=== PATIENT | female | born 1970 | race Caucasian/White ===

== ENCOUNTER 2018-03-16 14:12 | Outpatient (CLI) | payer OTHER ==
--- NOTE | 2018-03-21 17:47 | Mammography Report ---
DIGITAL SCREENING MAMMOGRAM: 03/16/2018 CLINICAL INDICATION: A 47-year-old nulliparous patient for screening. COMPARISON: 12/2015, 07/2012, 07/2008. TECHNIQUE: Routine CC and MLO projections were obtained of the breasts. FINDINGS: Parenchymal tissue within the breasts is predominantly fatty replaced. There are no dominant masses, suspicious microcalcifications, or secondary signs of malignancy. In comparison to the previous studies, there are no significant changes. IMPRESSION: NO MAMMOGRAPHIC EVIDENCE OF MALIGNANCY. NO SIGNIFICANT INTERVAL CHANGES. RECOMMENDATION: Screening mammography is recommended annually. BIRADS category 1 - negative. STANDARD QUALIFYING STATEMENTS: 1. This examination was reviewed with the aid of Computed-Aided Detection (CAD). 2. A negative or benign imaging report should not delay biopsy if clinically suspicious findings are present. Consider surgical consultation if warranted. More than 5% of cancers are not identified by imaging. 3. Dense breasts may obscure an underlying neoplasm. TD: 03/21/2018 15:33
== END 2018-03-16 14:13 | disposition home or self-care (01) ==
LOC: DI.N 14:12
PROVIDERS: ATTEND Nutritionist
DX: Z12.31 Encounter for screening mammogram for malignant neoplasm of breast (principal)
CPT/HCPCS: 77067

== ENCOUNTER 2021-09-21 11:15 | Emergency (ER) | payer OTHER ==
[2021-09-21 13:09] VITALS: BP 146/78
--- NOTE | 2021-09-21 13:17 | ED Physician Documentation ---
PD HPI UPPER EXT INJURY - Stated complaint Stated Complaint: LEFT SHOULDER PX - Chief complaint Chief Complaint: Ext Problem - History obtained from History obtained from: Patient - Additonal information Additional information: 50-year-old woman with history of very remote [place] repair of left shoulder has had increased left shoulder pain over the last days or so culminating in basically the inability to move it at all now. She notes that she cannot really abduct at all but can do it passively if she uses her right arm to move it. Pain is diffuse about the left shoulder and severe at times. Movement really hurts. No fevers. Review of Systems Constitutional: reports: Reviewed and negative Eyes: reports: Reviewed and negative Ears: reports: Reviewed and negative Nose: reports: Reviewed and negative PD PAST MEDICAL HISTORY - Past Medical History Respiratory: Asthma - Past Surgical History HEENT: Tonsil/Adenoidectomy - Present Medications Home Medications: Ambulatory Orders Medication Instructions Recorded Confirmed Cetirizine HCl [Zyrtec] 10 mg PO DAILY 03/05/13 03/05/13 Montelukast Sodium [Singulair] 10 mg PO DAILY 03/05/13 03/05/13 PARoxetine HCl [Paxil] 20 mg PO DAILY 03/05/13 03/05/13 Prazosin HCl 5 mg PO DAILY 03/05/13 03/05/13 Propranolol [Inderal] 03/05/13 03/05/13 Rizatriptan Benzoate [Maxalt] 5 mg PO ONCE PRN 03/05/13 03/05/13 HYDROcod/ACETAM 5/325 [[place] 5/325] 1 - 2 tab PO Q6H PRN #15 tablet 09/21/21 - Allergies Allergies/Adverse Reactions: Allergies Allergy/AdvReac Type Severity Reaction Status Date / Time acetaminophen [From Percocet] Allergy Hallucinati Verified 09/21/21 11:38 ons diphenhydramine HCl * Allergy anaphylaxis Verified 09/21/21 11:38 [From Benadryl] formaldehyde Allergy anaphylaxis Verified 09/21/21 11:38 oxycodone HCl * Allergy Hallucinati Verified 09/21/21 11:38 [From Percocet] ons Penicillins Allergy Hives Verified 09/21/21 11:38 Sulfa (Sulfonamide Allergy Hives Verified 09/21/21 11:38 Antibiotics) - Social History Does the pt smoke?: No Smoking Status: Never smoker Does the pt drink ETOH?: Yes Does the pt have substance abuse?: No - Immunizations Immunizations: TDAP current <10years PD ED PE NORMAL - Vitals Vital signs reviewed: Yes - General General: Alert and oriented X 3, No acute distress - Back Back: No CVA TTP, No spinal TTP - Derm Derm: Normal color, Warm and dry - Extremities Extremities: Other (Diffuse tenderness about the left shoulder without focal bony tenderness. No tenderness of the clavicle. She is really unable to abduct at all but can do it passively when she uses the other arm. Positive supraspinatus testing. Normal sensation and strength throughout the upper extremities.) - Neuro Neuro: Alert and oriented X 3, Normal speech Results - Vitals Vitals: Vital Signs - 24 hr 09/21/21 09/21/21 11:35 13:08 Temperature 36.2 C L 36.6 C Heart Rate 99 98 Respiratory 16 17 Rate Blood Pressure 142/81 H 146/78 H O2 Saturation 99 100 Oxygen O2 Source Room air PD MEDICAL DECISION MAKING - ED course ED course: 50-year-old woman with clinical rotator cuff pathology on the left. X-ray of the left shoulder, 3 views, interpreted contemporaneously by me shows no acute issue. I am prescribing a short course of short-acting opioid pain medication for this patient. 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 I have discussed that the opioids are for short term therapy only, and will not be refilled from the ED. Departure - Departure Disposition: 01 Home, Self Care Clinical Impression: Rotator cuff arthropathy Condition: Good Record reviewed to determine appropriate education?: Yes Instructions: ED Tendinitis Rotator Cuff Prescriptions: HYDROcod/ACETAM 5/325 [[place] 5/325] 1 - 2 tab PO Q6H PRN #15 tablet PRN Reason: Pain Comments: Prescription sent electronically to [facility] in [place]. As discussed I think you have a rotator cuff issue on the Left. [facility] and/or orthopedic consult. Do range of motion exercises as shown to prevent frozen shoulder. I am prescribing a short course of narcotic pain medication for you. These are potentially dangerous and addictive medications that should be used carefully. These medications may constipate you. Take an jzvd-tsu-tdcxnnh stool softener (docusate) twice daily with plenty of water while taking these medications. If you go 24 hours without a bowel movement, take jzaz-poq-bihrvua miralax, per package instructions. Do not drink or drive while taking these medications. If you received narcotic or sedating medications while in the emergency department, do not drive for 24 hours. Store this medication in a safe, secure place and out of reach of children. It is a violation of federal law to give or sell this medication to another person or to use in a manner other than prescribed. The ED will not refill narcotic prescriptions, including prescriptions lost or stolen. To dispose of unwanted medications: 1. [facility] at [address] in [place] has a medication drop box. They accept prescription medications (in pill form) Tuesday through Tuesday 9:00 a.m. to 5:00 p.m. 2. The [facility] [employer] accepts prescription medications (in pill form only) for disposal year round. Call for more information. 3. Contact the [facility] for the next [facility] sponsored prescription drug collection event. , [phone], or [phone]; Note that many narcotic pain relievers also contain Tylenol/acetaminophen. Please ensure that your total dose of acetaminophen from all sources does not exceed 3 g (3000 mg) per day.
--- NOTE | 2021-09-21 13:45 | XRAY Report ---
PROCEDURE: Shoulder 3 View LT INDICATIONS: left shoulder pain TECHNIQUE: 3 views of the shoulder were acquired. COMPARISON: None. FINDINGS: Bones: No acute fractures or dislocations. No suspicious bony lesions. Visualized ribs appear inta ct. Postsurgical changes are seen with metallic anchors in the glenoid. Soft tissues: No suspicious soft tissue calcifications. IMPRESSION: No acute osseous abnormality. If there is clinical concern or persistent symptoms, addit ional imaging such as repeat radiographs or advanced imaging (e.g. CT, MRI) may be helpful for furthe r evaluation. Reviewed by: Tab Mitchell MD on 09/21/2021 1:44 PM PST Approved by: Tab Mitchell MD on 09/21/2021 1:44 PM PST Station ID: [id number]
[2021-09-21] MEDS: KETOROLAC 60 MG/2 ML VIAL IM STA (14:00)
== END 2021-09-21 14:44 | disposition home or self-care (01) ==
LOC: ED 11:15
DX: M75.102 Unspecified rotator cuff tear or rupture of left shoulder, not specified as traumatic (principal); M12.9 Arthropathy, unspecified
CPT/HCPCS: 96372; 99283

== ENCOUNTER 2022-11-24 14:51 | Outpatient (CLI) | payer OTHER ==
--- NOTE | 2022-11-25 09:28 | Mammography Report ---
BILATERAL DIGITAL SCREENING MAMMOGRAM 3D/2D: 11/24/2022 CLINICAL: Routine screening. Comparison is made to exams dated: 03/16/2018 mammogram and 01/20/2016 mammogram - [facility]. There are scattered areas of fibroglandular density in both breasts (category b / 25%-50% glandular t issue). No significant masses, calcifications, or other findings are seen in either breast. There has been no significant interval change. IMPRESSION: NEGATIVE There is no mammographic evidence of malignancy. A 1 year screening mammogram is recommended. Based on the Tyrer Cuzick model (a risk assessment model) the patients lifetime risk is 9.0% and her 10 year risk is 2.1%. According to the ACR, ACS, and NCCN guidelines, an annual breast MRI exam imani g with mammogram is recommended if the patients lifetime risk is 20% or greater. This exam was interpreted at Station ID: [id number]. NOTE: For mammograms, a report in lay terms will be sent to the patient. Approximately 15% of breast malignancies will not be visualized mammographically. In the management of a palpable breast mass, a negative mammogram must not discourage biopsy of a clinically suspicious lesion. Electronically Signed By: Conner marion/penrad:11/24/2022 17:26:43 ACR BI-RADS Category 1: Negative 3341F PARENCHYMAL PATTERN: (A) - The breast(s) demonstrate(s) scattered fibroglandular densities. BI-RADS CATEGORY: (1) - 1 RECOMMENDATION: (ANNUAL) - Recommend routine annual screening mammography. [id number] 1 year screening LATERALITY: (B)
== END 2022-11-24 14:52 | disposition home or self-care (01) ==
LOC: DI.N 14:51
PROVIDERS: ATTEND Nurse Practitioner
DX: Z12.31 Encounter for screening mammogram for malignant neoplasm of breast (principal)

== ENCOUNTER 2023-04-17 16:25 | Outpatient (CLI) | payer OTHER | END 2023-04-17 23:59 | disposition left against medical advice (07) | LOC: EMS 16:25 | DX: R11.10 Vomiting, unspecified (principal); R00.0 Tachycardia, unspecified ==

== ENCOUNTER 2023-04-19 16:55 | Outpatient (CLI) | payer OTHER ==
[~2023-04-19 16:55] MED LIST: DIATRIZOATE MEGLU/DIATRIZO SOD 30 ML BOTTLE PO ONE; iohexoL-300 100 ML VIAL ONE
--- NOTE | 2023-04-19 18:19 | CT Report ---
PROCEDURE: HEAD WO INDICATIONS: MIGRAINE TECHNIQUE: Noncontrast 4.5 mm thick angled axial sections acquired from the foramen magnum to the vertex. For r adiation dose reduction, the following was used: automated exposure control, adjustment of mA and/or kV according to patient size. COMPARISON: None. FINDINGS: Image quality: Excellent. CSF spaces: Basal cisterns are patent. No extra-axial fluid collections. Ventricles are normal in size and shape. Brain: No midline shift. No intracranial masses or hemorrhage. Canela-white matter interface is norm al. Skull and face: Calvarium and visualized facial bones are intact, without suspicious lesions. Sinuses: Visualized sinuses and mastoids are clear. IMPRESSION: No acute intracranial abnormality. Reviewed by: Conner Burger MD on 04/19/2023 6:18 PM PDT Approved by: Conner Burger MD on 04/19/2023 6:18 PM PDT Station ID: [id number]
== END 2023-04-19 16:56 | disposition home or self-care (01) ==
LOC: DI 16:55
PROVIDERS: ATTEND Internal Medicine
DX: G43.109 Migraine with aura, not intractable, without status migrainosus (principal); Z78.0 Asymptomatic menopausal state
CPT/HCPCS: 36415; 83001

== ENCOUNTER 2024-02-18 18:56 | Emergency (ER) | payer OTHER ==
[2024-02-18 19:06] VITALS: O2SAT 98
--- NOTE | 2024-02-18 19:19 | ED Physician Documentation ---
PD HPI HEADACHE - Stated complaint Stated Complaint: MIGRAINE/VERTIGO - Chief complaint Chief Complaint: Neuro - History obtained from History obtained from: Patient - Additional information Additional information: Patient complains of migraine headache. Patient says she "suffers from migraines" (per patient). She says she gets monthly injections for this, is not due for the next injection until February 28. The migraine is bifrontal, started earlier today without inciting event. It is associate with nausea but no vomiting, fatigue, and vertigo. She took a, medication (aspirin, caffeine, butalbital) this morning without improvement. She also started to get a ringing noise/sound in her ears, which she says often has been the first symptom leading to syncopal episodes with her migraine headaches. She did not, however, experience any syncope today. Review of Systems Constitutional: denies: Fever Eyes: reports: Photophobia GI: reports: Nausea. denies: Abdominal Pain, Vomiting Neurologic: reports: Generalized weakness, Headache. denies: Focal weakness, Numbness, Near syncope, Syncope PD PAST MEDICAL HISTORY - Past Medical History Respiratory: Asthma - Past Surgical History HEENT: Tonsil/Adenoidectomy - Present Medications Home Medications: Ambulatory Orders Medication Instructions Recorded Confirmed Cetirizine HCl [Zyrtec] 10 mg PO DAILY 03/05/13 03/05/13 Montelukast Sodium [Singulair] 10 mg PO DAILY 03/05/13 03/05/13 PARoxetine HCL [Paxil] 20 mg PO DAILY 03/05/13 03/05/13 Prazosin HCl 5 mg PO DAILY 03/05/13 03/05/13 Propranolol [Inderal] 03/05/13 03/05/13 Rizatriptan Benzoate [Maxalt] 5 mg PO ONCE PRN 03/05/13 03/05/13 HYDROcod/ACETAM 5/325 [[place] 5/325] 1 - 2 tab PO Q6H PRN #15 tablet 09/21/21 - Allergies Allergies/Adverse Reactions: Allergies Allergy/AdvReac Type Severity Reaction Status Date / Time acetaminophen [From Percocet] Allergy Hallucinati Verified 02/18/24 19:07 ons diphenhydramine HCl * Allergy anaphylaxis Verified 02/18/24 19:07 [From Benadryl] formaldehyde Allergy anaphylaxis Verified 02/18/24 19:07 oxycodone HCl * Allergy Hallucinati Verified 02/18/24 19:07 [From Percocet] ons Penicillins Allergy Hives Verified 02/18/24 19:07 Sulfa (Sulfonamide Allergy Hives Verified 02/18/24 19:07 Antibiotics) ondansetron [From Zofran] AdvReac Emesis Verified 02/18/24 19:07 - Social History Does the pt smoke?: No Smoking Status: Never smoker Does the pt drink ETOH?: Yes Does the pt have substance abuse?: No - Immunizations Immunizations: TDAP current <10years PD ED PE NORMAL - Vitals Vital signs reviewed: Yes - General General: Alert and oriented X 3, No acute distress, Well developed/nourished - HEENT HEENT: PERRL, EOMI, Moist mucous membranes - Neck Neck: Supple, no meningeal sign - Cardiac Cardiac: RRR, No murmur - Respiratory Respiratory: No respiratory distress, Clear bilaterally - Abdomen Abdomen: Soft, Non tender - Neuro Neuro: Alert and oriented X 3, senior web developer 2-12 intact, No motor deficit, No sensory deficit, Normal speech Eye Opening: Spontaneous Motor: Obeys Commands Verbal: Oriented GCS Score: 15 Results - Vitals Vitals: Vital Signs - 24 hr 02/18/24 02/18/24 02/18/24 18:58 19:05 21:05 Temperature 36.9 C 36.9 C 36.5 C Heart Rate 93 93 88 Respiratory 22 22 18 Rate Blood Pressure 143/88 H 143/88 H 138/88 H O2 Saturation 98 98 98 Oxygen O2 Source Room air - Labs Labs: Laboratory Tests 02/18/24 02/18/24 20:00 20:00 WBC 7.7 RBC 5.38 Hgb 11.8 L Hct 39.8 MCV 74.0 L MCH 21.9 L MCHC 29.6 L RDW 16.7 H Plt Count 164 MPV 10.7 Neut # (Auto) 4.4 Lymph # (Auto) 2.3 Delta # (Auto) 0.8 Eos # (Auto) 0.2 Baso # (Auto) 0.0 Absolute Nucleated RBC 0.00 Nucleated RBC % 0.0 Sodium 138 Potassium 3.6 Chloride 104 Carbon Dioxide 27 Anion Gap 7.0 BUN 12 Creatinine 0.8 Estimated GFR (MDRD) 75 L Glucose 103 Calcium 9.6 PD Medical Decision Making - ED course Complexity details: reviewed results, re-evaluated patient, considered differential, d/w patient ED course: Patient presents with what she says is a number of symptoms along with headache that are consistent with previous migraine headaches that she has had, albeit this 1 is worse than her typical migraine headaches (she says it has been many years since she has had to go to emergency department for migraine headache). One of the challenges in treating is patient is that she lives a number of allergies and does not want any anti-nausea medications (she says anti-nausea medications make her "so much more nauseous"). She is given 1 L IV normal saline, 30 mg IV Toradol. Basic blood tests are ordered. Note that I had also ordered meclizine. I discussed this option for treatment of her vertigo with her, including the brand-name Antivert along with the generic name meclizine. She is not familiar with this medication. When I went to order the medication, the computer is flagging caution due to patient's chart listing diphenhydramine as an allergy. When I asked patient about the diphenhydramine allergy, she says it causes anaphylaxis. Although meclizine is a different medication, it still works through anti-histamine mechanism and thus I canceled the meclizine order. There are no concerning nor diagnostic findings on CBC, basic metabolic profile. On reevaluation, results discussed with patient. She reports feeling much improved after 1 L normal saline and the IV Toradol, and is comfortable with discharge at this time. Return precautions reviewed, encouraged to follow-up with PCP. Departure - Departure Disposition: 01 Home, Self Care Clinical Impression: Migraine Qualifiers: Migraine type: unspecified Status migrainosus presence: with status migrainosus Intractability: not intractable Qualified Code(s): G43.901 - Migraine, unspecified, not intractable, with status migrainosus Condition: Good Instructions: ED Headache Migraine Comments: There were no concerning findings on tonight's basic blood tests. Your white blood cell count, electrolytes, kidney function tests, and blood sugar were all within normal ranges. You were given 1 L of IV fluids as well as 30 mg of Toradol (anti-inflammatory) through the IV. Hopefully, with some rest at home, you will continue to have improvement in your symptoms. Discharge Date/Time: 02/18/24 21:31
[2024-02-18] MEDS: MECLIZINE 12.5 MG TABLET PO STA (19:52)
[2024-02-18] MEDS: KETOROLAC 30 MG/ML VIAL IVP STA (20:03)
[2024-02-18] MEDS: SODIUM CHLORIDE 0.9% 1,000 ML IV STA (20:04)
[2024-02-18 20:25] LABS: BASOPHILS % (AUTO) 0.3 %; EOSINOPHILS # (AUTO) 0.2 10^3/uL (0.0-0.7); HCT - HEMATOCRIT 39.8 % (37.0-47.0); HGB - HEMOGLOBIN 11.8 g/dL (12.0-16.0); LYMPHOCYTES # (AUTO) 2.3 10^3/uL (1.5-3.5); LYMPHOCYTES % (AUTO) 30.3 %; MEAN CORPUSCULAR HEMOGLOBIN 21.9 pg (27.0-31.0); MEAN CORPUSCULAR HGB CONC 29.6 g/dL (32.0-36.0); MEAN PLATELET VOLUME 10.7 fL (7.9-10.8); MONOCYTES # (AUTO) 0.8 10^3/uL (0.0-1.0); MONOCYTES % (AUTO) 9.7 %; NEUTROPHILS # (AUTO) 4.4 10^3/uL (1.5-6.6); NEUTROPHILS % (AUTO) 56.4 %; PLT - PLATELET COUNT 164 10^3/uL (130-450); RED BLOOD COUNT 5.38 10^6/uL (4.20-5.40); RED CELL DISTRIBUTION WIDTH 16.7 % (12.0-15.0); WHITE BLOOD COUNT 7.7 x10^3/uL (4.8-10.8)
[2024-02-18 20:41] LABS: CALCIUM 9.6 mg/dL (8.5-10.3); CREATININE 0.8 mg/dL (0.6-1.3); POTASSIUM 3.6 mmol/L (3.5-4.5)
[2024-02-18 21:15] VITALS: BP 138/88
== END 2024-02-18 21:31 | disposition home or self-care (01) ==
LOC: ED 18:56
DX: G43.901 Migraine, unspecified, not intractable, with status migrainosus (principal); R42 Dizziness and giddiness; Z88.8 Allergy status to other drugs, medicaments and biological substances
CPT/HCPCS: 36415; 80048; 85025; 96374; 99284

== ENCOUNTER 2024-04-17 16:16 | Emergency (ER) | payer OTHER ==
--- NOTE | 2024-04-17 17:06 | XRAY Report ---
PROCEDURE: Knee 4+V RT INDICATIONS: PAIN/TENDERNESS/SWELLING R KNEE TECHNIQUE: 4 views of the knee(s) were acquired. COMPARISON: None. FINDINGS: Bones: No fractures or dislocations. Moderate to severe medial femoral tibial compartment osteoarthr itic changes are seen with significant joint space narrowing, subchondral sclerosis and marginal oste ophyte formation. No patella subluxation. No suspicious bony lesions. Soft tissues: Nonspecific mild anterior medial right knee soft tissue swelling is seen. Small knee darius int effusion. No suspicious soft tissue calcifications or masses. IMPRESSION: No acute right knee fracture or dislocation. 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 Nonspecific anteromedial right knee soft tissue swelling and small joint effusion. Reviewed by: Dennis Santizo MD on 04/17/2024 5:05 PM PDT Approved by: Dennis Santizo MD on 04/17/2024 5:05 PM PDT Station ID: [id number]
--- NOTE | 2024-04-17 17:17 | ED Physician Documentation ---
History of Present Illness - Stated complaint Stated Complaint: R KNEE PX - Chief complaint Chief Complaint: Ext Problem - History obtained from History obtained from: Patient - History of Present Illness Timing: Other (several months) Pain level max: 6 Pain level now: 4 - Additonal information Additional information: 53-year-old female with right knee pain for several months. She states that it occasionally gives out on her. She states that it swells as well. She has had problems with the right knee in the past. Worse with walking, better with rest. She did bump it on a dresser recently. She states that she called her doctor who told her to come to the emergency department for evaluation. No numbness or tingling. No redness. No fevers. Review of Systems Constitutional: denies: Fever PD PAST MEDICAL HISTORY - Past Medical History Past Medical History: Yes Cardiovascular: None Respiratory: Asthma Neuro: Migraines Endocrine/Autoimmune: Other GI: None SLITTER OPERATOR: None : None HEENT: None Psych: None Musculoskeletal: Other Derm: None - Past Surgical History Past Surgical History: Yes HEENT: Tonsil/Adenoidectomy - Present Medications Home Medications: Ambulatory Orders Medication Instructions Recorded Confirmed Cetirizine HCl [Zyrtec] 10 mg PO DAILY 03/05/13 03/05/13 Montelukast Sodium [Singulair] 10 mg PO DAILY 03/05/13 03/05/13 Butalb/Acetam/Caff 50/325/40 325 mg PO Q4HR 04/17/24 [Fioricet] Erenumab-Aooe [Aimovig 140 mg IM MAINTENANCE.IV 04/17/24 Autoinjector] HYDROcod/ACETAM 5/325 [Cromona 5/325] 1 - 2 ea PO Q6H PRN #14 tablet 04/17/24 Ketorolac Inj (60Mg) [Toradol Inj 100 mg IM MAINTENANCE.IV 04/17/24 (60Mg)] Ubregabapentin 100 mg IM MAINTENANCE.IV 04/17/24 - Allergies Allergies/Adverse Reactions: Allergies Allergy/AdvReac Type Severity Reaction Status Date / Time acetaminophen [From Percocet] Allergy Hallucinati Verified 04/17/24 17:00 ons diphenhydramine HCl * Allergy anaphylaxis Verified 04/17/24 17:00 [From Benadryl] formaldehyde Allergy anaphylaxis Verified 04/17/24 17:00 oxycodone HCl * Allergy Hallucinati Verified 04/17/24 17:00 [From Percocet] ons Penicillins Allergy Hives Verified 04/17/24 17:00 Sulfa (Sulfonamide Allergy Hives Verified 04/17/24 17:00 Antibiotics) ondansetron [From Zofran] AdvReac Emesis Verified 04/17/24 17:00 - Social History Does the pt smoke?: No Smoking Status: Never smoker Does the pt drink ETOH?: Yes Does the pt have substance abuse?: No - Immunizations Immunizations are current?: Yes Immunizations: TDAP current <10years - POLST Patient has POLST: No PD ED PE NORMAL - Vitals Vital signs reviewed: Yes - General General: Alert and oriented X 3, No acute distress - HEENT HEENT: Moist mucous membranes - Derm Derm: Warm and dry - Extremities Extremities: Other (Right knee - ACL, LCL, PCL are intact. Mild MCL laxity. Very small joint effusion. Full range of motion. Unable to tolerate meniscus testing. Neurovascular intact) - Neuro Neuro: Alert and oriented X 3 Results - Vitals Vitals: Vital Signs - 24 hr 04/17/24 04/17/24 16:21 17:28 Temperature 36.1 C L 36.6 C Heart Rate 110 H 112 H Respiratory 16 22 Rate Blood Pressure 161/91 H 136/88 H O2 Saturation 100 98 Oxygen O2 Source Room air - Rads (name of study) Right knee x-ray Relevant Findings:: Final report received, See rad report PD Medical Decision Making - ED course Complexity details: reviewed results, d/w patient ED course: 53-year-old female with right knee pain. Has moderate to severe medial compartment arthritis on x-ray. No significant ligamentous laxity except for her MCL does have some laxity. Placed in a articulating knee brace. She refuses crutches. Will prescribe pain medication for home. Recommend she follow-up with her doctor, likely for physical therapy, possible MRI and possible referral to orthopedics. No evidence of septic joint. Patient counseled regarding signs and symptoms for which I believe and urgent re- evaluation would be necessary. Patient with good understanding of and agreement to plan and is comfortable going home at this time This document was made in part using voice recognition software. While efforts are made to proofread this document, sound alike and grammatical errors may occur. Departure - Departure Disposition: 01 Home, Self Care Clinical Impression: Arthritis of knee Condition: Good Instructions: ED Degenerative Joint Disease Follow-Up: DEBORAH MOSQUERA ARNP [Primary Care Provider] - Prescriptions: HYDROcod/ACETAM 5/325 [Cromona 5/325] 1 - 2 ea PO Q6H PRN #14 tablet PRN Reason: Pain Comments: As we discussed you do have moderate to severe arthritis in the inner aspect of your right knee. You also do have a small joint effusion but not enough to drain. I would recommend following up with your doctor and/or orthopedics to discuss joint injections or other treatment modalities that may be appropriate for you. Your doctor may want to order an MRI as well. Your prescription was sent to [facility] in [place]. I am prescribing a short course of narcotic pain medication for you. These are potentially dangerous and addictive medications that should be used carefully. These medications may constipate you. Take an dzin-nse-jdlzxdt stool softener (docusate) twice daily with plenty of water while taking these medications. If you go 24 hours without a bowel movement, take kapn-njz-buovfor miralax, per package instructions. Do not drink or drive while taking these medications. If you received narcotic or sedating medications while in the emergency department, do not drive for 24 hours. Store this medication in a safe, secure place and out of reach of children. It is a violation of federal law to give or sell this medication to another person or to use in a manner other than prescribed. The ED will not refill narcotic prescriptions, including prescriptions lost or stolen. To dispose of unwanted medications: 1. [facility] at [address] in [place] has a medication drop box. They accept prescription medications (in pill form) Tuesday through Tuesday 9:00 a.m. to 5:00 p.m. 2. The [facility] [employer] accepts prescription medications (in pill form only) for disposal year round. Call for more information. 3. Contact the [facility] for the next [facility] sponsored prescription drug collection event. , [phone], or [phone]; PROCEDURE: Knee 4+V RT INDICATIONS: PAIN/TENDERNESS/SWELLING R KNEE TECHNIQUE: 4 views of the knee(s) were acquired. COMPARISON: None. FINDINGS: Bones: No fractures or dislocations. Moderate to severe medial femoral tibial compartment osteoarthritic changes are seen with significant joint space narrowing, subchondral sclerosis and marginal osteophyte formation. No patella subluxation. No suspicious bony lesions. Soft tissues: Nonspecific mild anterior medial right knee soft tissue swelling is seen. Small knee joint effusion. No suspicious soft tissue calcifications or masses. IMPRESSION: No acute right knee fracture or dislocation. 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 Nonspecific anteromedial right knee soft tissue swelling and small joint effusion. Forms: PCP List Discharge Date/Time: 04/17/24 17:57
[2024-04-17 17:37] VITALS: BP 136/88; O2SAT 98
== END 2024-04-17 17:57 | disposition home or self-care (01) ==
LOC: ED 16:16
DX: M17.11 Unilateral primary osteoarthritis, right knee (principal); M25.461 Effusion, right knee
CPT/HCPCS: 99283

== ENCOUNTER 2024-06-20 08:15 | Outpatient (CLI) | payer OTHER ==
--- NOTE | 2024-06-22 15:35 | Mammography Report ---
BILATERAL DIGITAL SCREENING MAMMOGRAM 3D/2D: 06/20/2024 CLINICAL: Routine screening. Comparison is made to exams dated: 11/24/2022 mammogram, 03/16/2018 mammogram, 01/20/2016 mammogram, an d 07/24/2012 mammogram - [facility]. There are scattered areas of fibroglandular density in both breasts (category b / 25%-50% glandular t issue). No significant masses, calcifications, or other findings are seen in either breast. There has been no significant interval change. IMPRESSION: NEGATIVE There is no mammographic evidence of malignancy. A 1 year screening mammogram is recommended. Based on the Tyrer Cuzick model (a risk assessment model) the patient's lifetime risk is 9.1% and her 10 year risk is 2.3%. According to the ACR, ACS, and NCCN guidelines, an annual breast MRI exam imani g with mammogram is recommended if the patient's lifetime risk is 20% or greater. This exam was interpreted at Station ID: [id number]. NOTE: For mammograms, a report in lay terms will be sent to the patient. Approximately 15% of breast malignancies will not be visualized mammographically. In the management of a palpable breast mass, a negative mammogram must not discourage biopsy of a clinically suspicious lesion. Electronically Signed By: Silvia Dixon M.D., Ph.D. hal/naima:06/21/2024 14:04:57 letter sent: No_Letter ACR BI-RADS Category 1: Negative 3341F PARENCHYMAL PATTERN: (A) - The breast(s) demonstrate(s) scattered fibroglandular densities. BI-RADS CATEGORY: (1) - 1 RECOMMENDATION: (ANNUAL) - Recommend routine annual screening mammography. [id number] 1 year screening LATERALITY: (B)
== END 2024-06-20 08:16 | disposition home or self-care (01) ==
LOC: DI.N 08:15
PROVIDERS: ATTEND Registered Nurse
DX: Z12.31 Encounter for screening mammogram for malignant neoplasm of breast (principal); R92.323 Mammographic fibroglandular density, bilateral breasts